=== PATIENT | male | born 1965 | race Asian ===

== ENCOUNTER → 2023-08-08 | Outpatient (CLI) | payer OTHER | END | disposition home or self-care (01) | LOC: RADMN 08:31 | PROVIDERS: ATTEND Internal Medicine | DX: R05.9 Cough, unspecified (principal) | CPT/HCPCS: 71046 ==

== ENCOUNTER → 2023-08-12 | Outpatient (CLI) | payer OTHER | END | disposition home or self-care (01) | LOC: RADMN 12:36 | PROVIDERS: ATTEND Internal Medicine | DX: R51.9 Headache, unspecified (principal); R10.9 Unspecified abdominal pain | CPT/HCPCS: 70450; 74019 ==